=== PATIENT | female | born 1960 | race Two or more races ===

== ENCOUNTER 2017-05-23 20:45 | Emergency (ER) | payer OTHER ==
[~2017-05-23] VITALS: Ht 157.5 cm; Wt 74.8 kg
[~2017-05-23 20:45] MED LIST: FORTAMET1000 MG; GEMFIBROZIL600 MG; LIPITOR40 MG; PREVACID30 MG
[2017-05-24] MEDS ORDERED: ZOFRAN4 MG PO (03:56)
[2017-05-24] MEDS ORDERED: PEPCID40 MG PO (03:56)
[2017-05-24] MEDS ORDERED: CEFUROXIME500 MG PO (03:56)
== END 2017-05-24 03:53 | disposition home or self-care (01) ==
LOC: ER 20:45
DX: K29.70 Gastritis, unspecified, without bleeding (principal); N39.0 Urinary tract infection, site not specified

== ENCOUNTER 2020-05-20 10:08 | Inpatient (IN) | payer OTHER ==
[~2020-05-20] VITALS: Ht 157.5 cm; Wt 77.1 kg
[~2020-05-20 10:08] MED LIST changes: +CEFUROXIME500 MG PO; +GLIMEPIRIDE2 M1; +KETO10TA2 PO; +LEVOFLOXACIN500 MG PO; +PEPCID40 MG PO; +ZOFRAN4 MG PO
--- NOTE | 2020-05-20 10:41 | NUR ---
PTE REFIERE CELULITIS EN [facility] NASIR SE CHRISTINA S/V YSE UBICA EN AREA DE OBSERVACION
--- NOTE | 2020-05-20 11:40 | NUR ---
SE ORIENTA PTE SOBRE EL TRATAMIENTO ORDNEADO POR LA DRA MESA PTE ALERTA Y CONCIENTE POR 3 SE REALIZAN MUESTRAS DE LABORATORIO Y SE ADMINISTRAN MEDICAMENTO POLLY ORDNEADO
[2020-05-22] MEDS ORDERED: BACTRIM DS TAB1 EACH PO (10:39)
== END 2020-05-22 11:12 | disposition left against medical advice (07) | DRG 638 ==
LOC: ER 10:08 → SEC-K 17:01 → MEDI 17:01
PROVIDERS: ADMIT Internal Medicine; ATTEND Internal Medicine
DX: E11.628 Type 2 diabetes mellitus with other skin complications (principal); L03.116 Cellulitis of left lower limb; M25.572 Pain in left ankle and joints of left foot; S90.32XA Contusion of left foot, initial encounter